=== PATIENT | female | born 1970 | race Caucasian/White ===

== ENCOUNTER 2024-12-12 15:31 | Emergency (ER) | payer BC, SELFPAY ==
[2024-12-12] VITALS (8 sets, daily range): BP systolic 124–151; BP diastolic 78–89; PULSE 65–78; O2SAT 97–100; BMI 30.9
--- NOTE | 2024-12-12 15:59 | ECG_ITS ---
[facility] Test Date: 2024-12-12 Pat Name: ABELARDO MORRISON Department: Room: - Gender: Female [employer]one Operator: : 1970 Requested By: Order Number: [id number] Reading MD: KRISTINA GUERRA Measurements Intervals [place] Rate: 66 P: 82 UT: 166 QRS: 26 QRSD: 80 T: 60 QT: 404 QTc: 418 Interpretive Statements 1100 Sinus rhythm 8102 Low QRS voltage in chest leads 9120 atypical ECG No previous ECG available for comparison Electronically Signed On 12-14-2024 5:26:51 EST by KRISTINA GUERRA
--- NOTE | 2024-12-12 16:02 | ED_ITS ---
HPI HPI - General Adult General Chief complaint: Chest Pain Stated complaint: Anxiety Time Seen by Provider: 12/12/24 15:36 Source: patient Mode of arrival: walk-in Limitations: no limitations History of Present Illness HPI narrative: Patient presents to ED for anxiety and chest pain. Patient states on Tuesday she was summoned for jury duty in [place] and gave her anxiety. That is when she started getting some left-sided chest pain. She said the chest pain has been on and off since then on the left side anteriorly. No nausea or vomiting no diaphoresis. She does not have any history of cardiac issues no stents in the past. Patient states her work environment is also very stressful. Patient is alert and oriented no acute distress. She said the pain is mild at this time in the anterior chest. It does not radiate anywhere. Vital signs stable. Related Data Allergies Allergy/AdvReac Type Severity Reaction Status Date / Time No Known Drug Allergies Allergy Verified 12/12/24 15:50 Opioid HPI Opioid Management Most Recent Opioid Data: No Data to Display Review of Systems ROS Status of ROS 10 or more systems reviewed and unremark able except as noted in history and below PFSH PFSH Social History Little interest or pleasure in doing things: not at all Feeling down, depressed, or hopeless: not at all Exam Narrative Exam Narrative: Time Seen: [] Vital Signs: [Per nurse's notes.] General: [Alert] Skin: [Warm, dry, no rash.] Head: [Normocephalic, atraumatic.] Neck: [Supple, trachea midline.] Eye: [Pupils are equal, round and reactive to light, extraocular movements are intact, normal conjunctiva.] Ears, nose, mouth and throat: oral mucosa moist. Cardiovascular: [Regular rate and rhythm, no murmur.] Respiratory: [Lungs are clear to auscultation, respirations are non-labored, breath sounds are equal.] Chest wall: [No tenderness, no deformity.] Gastrointestinal: [Soft, nontender, non distended, normal bowel sounds.] MSK: 5 out of 5 muscle strength x 4 extremities no calf pain or edema Lymphatics: [No lymphadenopathy.] Psychiatric: [Cooperative, appropriate mood & affect.] Neurological: [Alert and oriented to person, place, time, and situation, no focal neurological deficit observed.] Constitutional Vital Signs, click to edit/add: Last Vital Signs Pulse 65 12/12/24 16:30 Resp 21 H 12/12/24 16:30 BP 151/82 H 12/12/24 16:30 Pulse Ox 98 12/12/24 16:30 O2 Del Method Room Air 12/12/24 15:50 Course Vital Signs Vital signs: Vital Signs Pulse Rate 78 12/12/24 15:50 Respiratory Rate 20 12/12/24 15:50 Blood Pressure 124/83 12/12/24 15:50 Pulse Oximetry 100 12/12/24 15:50 Oxygen Delivery Method Room Air 12/12/24 15:50 Pulse Rate 65 12/12/24 16:30 Respiratory Rate 21 H 12/12/24 16:30 Blood Pressure 151/82 H 12/12/24 16:30 Pulse Oximetry 98 12/12/24 16:30 Oxygen Delivery Method Room Air 12/12/24 15:50 Medical Decision Making MDM Narrative Medical decision making narrative: Patient's labs are negative for acute findings. No elevated troponin. EKG was nonacute. Vital signs stable. Most likely stress and anxiety causing the chest pain about work and jury duty. Patient requested to be off work tomorrow. Return to ED if worsening symptoms otherwise follow-up with your family doctor as you may need a stress test done outpatient. Patient is comfortable with care plan for home Differential Diagnosis Differential Diagnosis: Atypical chest pain, anxiety, stress, [place] Lab Data Lab results reviewed: Yes I reviewed the patient's lab results Labs: Lab Results 12/12/24 Range/Units 16:10 WBC 9.2 (4.0-11.0) 10^3/uL RBC 4.30 (4.20-5.40) 10^6/uL Hgb 13.4 (12.0-16.0) g/dL Hct 39.9 (36.0-48.0) % MCV 92.8 (81.0-99.0) fL MCH 31.2 (26.7-34.0) pg MCHC 33.6 (29.9-35.2) g/dL RDW 12.5 (11.0-15.0) % Plt Count 306 (150-450) 10^3/uL MPV 10.3 (9.5-13.5) fL Neut % (Auto) 53.1 (43.0-75.0) % Lymph % (Auto) 36.9 (20.5-60.0) % [place] % (Auto) 6.8 (1.7-12.0) % Eos % (Auto) 2.6 (0.9-7.0) % Baso % (Auto) 0.5 (0.2-2.0) % Neut # (Auto) 4.9 (1.4-6.5) 10^3/uL Lymph # (Auto) 3.4 (1.2-3.8) 10^3/uL [place] # (Auto) 0.6 (0.3-0.8) 10^3/uL Eos # (Auto) 0.2 (0.0-0.7) 10^3/uL Baso # (Auto) 0.1 (0.0-0.1) 10^3/uL Abs Immat Gran (auto) 0.01 (0.00-0.03) 10^3/uL Imm/Tot Granulo (auto) 0.1 (0.0-0.5) % Sodium 143 (136-145) mmol/L Potassium 3.7 (3.5-5.1) mmol/L Chloride 104 (98-107) mmol/L Carbon Dioxide 31.0 (21.0-32.0) mmol/L Anion Gap 11.7 BUN 14.0 (7.0-18.0) mg/dL Creatinine 1.04 H (0.55-1.02) mg/dL Est GFR ( Amer) >60 (>=60 mL/min/1.73m^2) Est GFR (Non-Af Amer) 56 L (>=60 mL/min/1.73m^2) BUN/Creatinine Ratio 13.5 Glucose 100 (74-106) mg/dL Calcium 9.2 (8.5-10.1) mg/dL Total Bilirubin 0.5 (0.2-1.0) mg/dL AST 11 L (15-37) U/L ALT 20 (14-59) U/L Alkaline Phosphatase 72 (46-116) U/L Troponin I High Sens <4.0 L (4.0-51.3) pg/mL Total Protein 7.1 (6.4-8.2) g/dL Albumin 3.7 (3.4-5.0) g/dL Globulin 3.4 g/dL Albumin/Globulin Ratio 1.1 ECG Data Attestation: I personally reviewed and interpreted this ECG as follows: Interpretation: EKG INTERPRETATION Time: [] 1600 Rate: [] 66 Rhythm: _ [] Normal sinus rhythm ST segments: _ [] No acute ST elevation or depression T waves: _ [] Ectopy: _ [] P wave/IN interval: _ [] QRS interval: _ [] QT interval: _ [] Comparison: _ [] Comparison EKG date: [] Performed by: [self] Discharge Plan Discharge Chief Complaint: Chest Pain Clinical Impression: Chest pain, Anxiety Patient Disposition: Home, Self-Care Time of Disposition Decision: 17:01 Condition: Good Mode of Transportation: Private Vehicle Print Language: [place] Island[place] Instructions: Chest Pain (ED), Anxiety (ED) Referrals: Lanette Joaquin NP [Primary Care Provider] - 1 week
[2024-12-12 16:18] LABS: Basophils Absolute Auto 0.1 10^3/uL (0.0-0.1); Basophils Percent Auto 0.5 % (0.2-2.0); Eosinophils Absolute Auto 0.2 10^3/uL (0.0-0.7); Eosinophils Percent Auto 2.6 % (0.9-7.0); Hematocrit 39.9 % (36.0-48.0); Hemoglobin 13.4 g/dL (12.0-16.0); Immature Granulocytes Abs Auto 0.01 10^3/uL (0.00-0.03); Immature Granulocytes Pct Auto 0.1 % (0.0-0.5); Lymphocytes Absolute Auto 3.4 10^3/uL (1.2-3.8); Lymphocytes Percent Auto 36.9 % (20.5-60.0); Mean Corpuscular HGB Conc 33.6 g/dL (29.9-35.2); Mean Corpuscular Hemoglobin 31.2 pg (26.7-34.0); Mean Corpuscular Volume 92.8 fL (81.0-99.0); Mean Platelet Volume 10.3 fL (9.5-13.5); Monocytes Absolute Auto 0.6 10^3/uL (0.3-0.8); Monocytes Percent Auto 6.8 % (1.7-12.0); Neutrophils Absolute Auto 4.9 10^3/uL (1.4-6.5); Neutrophils Percent Auto 53.1 % (43.0-75.0); Platelet Count 306 10^3/uL (150-450); Red Cell Distribution Width 12.5 % (11.0-15.0); White Blood Count 9.2 10^3/uL (4.0-11.0)
[2024-12-12 16:42] LABS: Alanine Aminotransferase 20 U/L (14-59); Albumin Globulin Ratio 1.1; Albumin Level 3.7 g/dL (3.4-5.0); Alkaline Phosphatase 72 U/L (46-116); Anion Gap 11.7; Aspartate Amino Transferase 11 U/L (15-37); BUN Creatinine Ratio 13.5; Bilirubin Total 0.5 mg/dL (0.2-1.0); Calcium 9.2 mg/dL (8.5-10.1); Chloride 104 mmol/L (98-107); Estimated GFR (African America >60 (>=60 mL/min/1.73m^2); Estimated GFR (Non-African Ame 56 (>=60 mL/min/1.73m^2); Globulin 3.4 g/dL; Glucose 100 mg/dL (74-106); Potassium 3.7 mmol/L (3.5-5.1); Sodium 143 mmol/L (136-145); Total Protein 7.1 g/dL (6.4-8.2); Troponin I High Sensitivity <4.0 pg/mL (4.0-51.3)
== END 2024-12-12 17:25 | disposition home or self-care (01) ==
PROVIDERS: Emergency Provider Emergency Medicine; PCP Nurse Practitioner Family
DX: R07.9 Chest pain, unspecified (principal); F41.9 Anxiety disorder, unspecified
CPT/HCPCS: 36415; 80053; 84484; 85025; 93005; 99284